=== PATIENT | male | born 1950 | race Caucasian/White ===

== ENCOUNTER 2017-07-05 17:13 | Emergency (ER) | payer OTHER ==
[2017-07-05 17:31] VITALS: O2SAT 97
--- NOTE | 2017-07-05 17:45 | ED PDOC ---
HPI: General Adult Time Seen by Provider: 07/05/17 17:44 Chief Complaint (Nursing): Cough, Cold, Congestion Chief Complaint (Provider): cough, congestion History Per: Patient Additional Complaint(s): 67-year-old male presents to emergency department with chest and nasal congestion 3 days. He denies fever or chills. Patient states cough is dry. He denies recent travel or known sick contacts. PMD: Dr. Brad Brooke Past Medical History Reviewed: Historical Data, Nursing Documentation, Vital Signs Vital Signs: Last Vital Signs Temp 98.6 F 07/05/17 17: Pulse 100 H 07/05/17 17:29 Resp 18 07/05/17 17:29 BP 101/54 L 07/05/17 17:29 Pulse Ox 97 07/05/17 18:19 - Medical History PMH: Benign Prostatic Hyperplasia, CAD, HTN, Hypercholesterolemia, Mitral Valve Prolapse - Surgical History Surgical History: Coronary Stent, Hernia Repair - Family History Family History: States: No Known Family Hx - Living Arrangements Living Arrangements: With Family - Social History Current smoker - smoking cessation education provided: No Alcohol: None Drugs: Denies - Home Medications Home Medications: Ambulatory Orders Medication Instructions Recorded Metoprolol Succinate 25 mg PO DAILY 08/11/14 Ranolazine [Ranexa] 500 mg PO BID 08/11/14 Tamsulosin [Flomax] 0.4 mg PO DAILY 08/11/14 Aspirin [Ecotrin] 81 mg PO DAILY #0 tabec 08/12/14 Albuterol Sulfate [Ventolin Hfa] 1 puff IH Q4 PRN #1 inh 07/05/17 Atorvastatin [Lipitor] 1 tab PO HS 07/05/17 Azithromycin [Zithromax] 250 mg PO DAILY #6 tab 07/05/17 Benzonatate 200 mg PO TID PRN #20 capsule 07/05/17 Methylprednisolone [Medrol Dose 4 mg PO ASDIR #21 mg 07/05/17 Pack (21 tabs)] - Allergies Allergies/Adverse Reactions: Allergies Allergy/AdvReac Type Severity Reaction Status Date / Time No Known Allergies Allergy Verified 07/05/17 17:28 Review of Systems ROS Statement: Except As Marked, All Systems Reviewed And Found Negative Constitutional: Negative for: Fever, Chills Cardiovascular: Negative for: Chest Pain Respiratory: Positive for: Cough. Negative for: Sputum Gastrointestinal: Negative for: Nausea, Vomiting, Abdominal Pain, Diarrhea Physical Exam - Reviewed Nursing Documentation Reviewed: Yes Vital Signs Reviewed: Yes - Physical Exam Appears: Positive for: Well, Non-toxic, No Acute Distress Skin: Negative for: Rash Eye Exam: Positive for: Normal appearance ENT: Positive for: Nasal Congestion, Pharyngeal Erythema Cardiovascular/Chest: Positive for: Regular Rate, Rhythm Respiratory: Positive for: Rhonchi. Negative for: Rales, Wheezing, Respiratory Distress Gastrointestinal/Abdominal: Positive for: Soft. Negative for: Tenderness Extremity: Positive for: Normal ROM. Negative for: Pedal Edema Neurologic/Psych: Positive for: Alert, Oriented - Laboratory Results Result Diagrams: 07/05/17 18:00 07/05/17 18:00 - ECG Interpretation Of ECG: Normal sinus rhythm 80 bpm, no acute finding, reviewed by PA and ED attending O2 Sat by Pulse Oximetry: 97 Pulse Ox Interpretation: Normal - Other Rad CXR X-Ray: Interpreted by Me, Viewed By Me X-Ray Interpretation: no acute finding Nebulizer Treatments/Peak Flow - Duonebs Number of Bronchodilator Doses given?: 1 (duoneb) - Pre/Post Peak Flow Pre Treatment Peak Flow: 400 Post treatment Peak Flow: 410 - Steroid Treatment Steroid: Oral (medrol dose pack rx) - Clinical Response Clinical Response: Improved Medical Decision Making Medical Decision Makin67 year old with cough Plan: EKG CXR CBC CMP BNP Trop CXR IVF Flu swab Duoneb x 1 Patient feels better after DuoNeb treatment. He is aware of all diagnostic testing results. Will discharge with prescriptions for Zithromax, Tessalon Perles, Ventolin inhaler and Medrol Dosepak. Patient was instructed to follow up with clinic in 2-3 days. Disposition - Clinical Impression Clinical Impression: Bronchitis - Patient ED Disposition Is Patient to be Admitted: No Counseled Patient/Family Regarding: Studies Performed, Diagnosis, Need For Followup, Rx Given - Disposition Referrals: [facility] [Outside] Disposition: Routine/Home Disposition Time: 18:51 Condition: IMPROVED Additional Instructions: Take prescription medicines as directed. Follow-up with clinic in 2-3 days. Prescriptions: Albuterol Sulfate [Ventolin Hfa] 1 puff IH Q4 PRN #1 inh PRN Reason: Wheezing Azithromycin [Zithromax] 250 mg PO DAILY #6 tab Benzonatate 200 mg PO TID PRN #20 capsule PRN Reason: Cough Methylprednisolone [Medrol Dose Pack (21 tabs)] 4 mg PO ASDIR #21 mg Instructions: Acute Bronchitis Forms: [employer] (Mongolian) Print Language: ICELANDIC Results - Lab Results Lab Results: 07/05/17 07/05/17 07/05/17 18:00 18:00 18:00 WBC 8.5 RBC 4.41 Hgb 13.9 Hct 41.2 MCV 93.3 MCH 31.5 H MCHC 33.8 RDW 13.1 Plt Count 154 MPV 9.3 Neut % (Auto) 74.0 Lymph % (Auto) 13.6 L Schuyler % (Auto) 10.1 H Eos % (Auto) 1.9 Baso % (Auto) 0.4 Neut # (Auto) 6.3 Lymph # (Auto) 1.2 Schuyler # (Auto) 0.9 H Eos # (Auto) 0.2 Baso # (Auto) 0.0 Sodium Potassium Chloride Carbon Dioxide Anion Gap BUN Creatinine Est GFR ( Amer) Est GFR (Non-Af Amer) Random Glucose Calcium Total Bilirubin AST ALT Alkaline Phosphatase Troponin I NT-Pro-B Natriuret Pep Total Protein Albumin Globulin Albumin/Globulin Ratio Influenza Typ A,B (EIA) Negative for flu a/b Grp A Beta Strep Ag Negative 07/05/17 18:00 WBC RBC Hgb Hct MCV MCH MCHC RDW Plt Count MPV Neut % (Auto) Lymph % (Auto) Schuyler % (Auto) Eos % (Auto) Baso % (Auto) Neut # (Auto) Lymph # (Auto) Schuyler # (Auto) Eos # (Auto) Baso # (Auto) Sodium 145 Potassium 3.9 Chloride 106 Carbon Dioxide 24 Anion Gap 19 BUN 26 H Creatinine 1.1 Est GFR ( Amer) > 60 Est GFR (Non-Af Amer) > 60 Random Glucose 113 H Calcium 8.7 Total Bilirubin 0.4 AST 27 ALT 45 Alkaline Phosphatase 63 Troponin I < 0.0120 NT-Pro-B Natriuret Pep 111 Total Protein 6.6 Albumin 3.5 Globulin 3.1 Albumin/Globulin Ratio 1.1 Influenza Typ A,B (EIA) Grp A Beta Strep Ag
[2017-07-05] MEDS ORDERED: Albuterol-Ipratrop 3 mg / 0.5 (3 ml) UD INH STA (17:53)
[2017-07-05] MEDS ORDERED: Sodium Chloride 0.9% 1,000 ML IV STA (17:53)
[2017-07-05 18:28] LABS: BASO % 0.4 % (0.0-2.0); EOS # 0.2 K/uL (0.0-0.7); EOS % 1.9 % (0.0-4.0); HEMOGLOBIN 13.9 g/dL (12.0-18.0); LYMPH # 1.2 K/uL (1.0-4.3); LYMPH % 13.6 % (20.0-40.0); MEAN CELL VOLUME 93.3 fl (80.0-94.0); MEAN CORPUSCULAR HEMOGLOBIN 31.5 pg (27.0-31.0); MEAN CORPUSCULAR HGB CONC 33.8 g/dL (33.0-37.0); MEAN PLATELET VOLUME 9.3 fl (7.2-11.7); MONO # 0.9 K/uL (0.0-0.8); MONO % 10.1 % (0.0-10.0); NEUT # 6.3 K/uL (1.8-7.0); RBC 4.41 Mil/uL (4.40-5.90); RED CELL DISTRIBUTION WIDTH 13.1 % (11.5-14.5); WHITE BLOOD COUNT 8.5 K/uL (4.8-10.8)
[2017-07-05 18:32] LABS: ALB/GLOB RATIO 1.1 (1.0-2.1); ALBUMIN 3.5 g/dL (3.5-5.0); ALT/SGPT 45 U/L (21-72); AST/SGOT 27 U/L (17-59); BLOOD UREA NITROGEN 26 mg/dl (9-20); CALCIUM 8.7 mg/dL (8.4-10.2); GFR AFRICAN-AMERICAN > 60; GFR NON-AFRICAN AMERICAN > 60
[2017-07-05 18:44] LABS: B-TYPE NATRIURETIC PEPTIDE 111 pg/ml (0-900)
[2017-07-05 19:08] VITALS: BP 110/57; PULSE 90; RESP 19; TEMP 98.8
--- NOTE | 2017-07-06 07:32 | RAD ---
HISTORY: cough COMPARISON: Portable chest 08/11/2014. FINDINGS: LUNGS: No active pulmonary disease. PLEURA: No significant pleural effusion identified, no pneumothorax apparent. CARDIOVASCULAR: Normal. OSSEOUS STRUCTURES: No significant abnormalities. VISUALIZED UPPER ABDOMEN: Normal. OTHER FINDINGS: None. IMPRESSION: No interval acute cardiopulmonary disease appreciated.
--- NOTE | 2017-07-06 20:40 | CARD ---
APPROVED REPORT EKG Measurement Heart [id number] <Conclusion> Normal sinus rhythm Normal ECG
== END 2017-07-05 19:12 | disposition home or self-care (01) ==
LOC: H.ER 17:13
DX: J40 Bronchitis, not specified as acute or chronic (principal); E78.00 Pure hypercholesterolemia, unspecified; I10 Essential (primary) hypertension; I25.10 Atherosclerotic heart disease of native coronary artery without angina pectoris; I34.1 Nonrheumatic mitral (valve) prolapse; N40.0 Benign prostatic hyperplasia without lower urinary tract symptoms; Z79.82 Long term (current) use of aspirin; Z95.5 Presence of coronary angioplasty implant and graft
CPT/HCPCS: 71045; 80053; 83880; 84484; 85025; 87070; 87430; 87804; 93005; 94640; 99282; J7040